=== PATIENT | female | born 1960 | race Caucasian/White ===

== ENCOUNTER 2017-05-16 11:46 | Inpatient (IN) | payer MEDICAID ==
[~2017-05-16] VITALS: Ht 175.3 cm; Wt 134.7 kg
[2017-05-16 12:23] LABS: Basophils # (auto) 0.1 uL; Basophils % (auto) 0.5 % (0.0-2.0); Eosinophils # (auto) 0.1 uL; Eosinophils % (auto) 0.4 % (0.0-7.0); Hematocrit 47.8 % (36.0-46.0); Hemoglobin 15.8 g/dL (12.2-16.2); Lymphocytes # (auto) 1.7 uL; Lymphocytes % (auto) 12.5 % (10.0-50.0); Mean Corpuscular Hemoglobin 29.7 pg (28.0-32.0); Monocytes % (auto) 7.4 % (0.0-12.0); Neutrophils # (auto) 10.5 uL; Neutrophils % (auto) 79.2 % (37.0-80.0); Nucleated Red Blood Cells % 0.1 %; Platelet Count (auto) 293 10^3/uL (140-450); Red Blood Cells 5.32 10^6/uL (4.0-5.20); Red Cell Distribution Width 13.4 % (11.8-14.3); White Blood Cell 13.2 10^3/uL (4.4-10.8)
[2017-05-16] MEDS ORDERED: SODIUM CHLORIDE 0.9% 1,000 ML IVB ONE (12:37)
[2017-05-16 12:43] LABS: Alanine Aminotransferase 36 U/L (13-56); Albumin 4.2 g/dL (3.4-5.0); Anion Gap 10 (5-15); Aspartate Aminotransferase 31 U/L (15-37); BUN/Creatinine Ratio 13.2; Blood Urea Nitrogen 14 mg/dL (7-18); Calcium 9.4 mg/dL (8.5-10.1); Carbon Dioxide 24 mmol/L (21-32); Chloride 101 mmol/L (98-107); GFR African American 69 mL/min; GFR Non-African American 57 mL/min; Glucose 118 mg/dL (74-106); Potassium 4.4 mmol/L (3.5-5.1); Sodium 135 mmol/L (136-145)
[2017-05-16] MEDS ORDERED: ONDANSETRON HCL 4 MG/2 ML VIAL IV ONE (12:45)
[2017-05-16] MEDS ORDERED: MORPHINE SULFATE 4 MG/ML SYR/VIAL IV ONE ×2 (12:45→16:30)
[2017-05-16 12:47] LABS: Alkaline Phosphatase 70 U/L (45-117); Bilirubin, Total 0.4 mg/dL (0.2-1.0); Total Protein 8.3 g/dL (6.4-8.2)
[2017-05-16 12:58] LABS: Magnesium 2.4 mg/dL (1.6-2.6)
[2017-05-16 13:11] LABS: INR 0.98 (0.9-1.15); Partial Thromboplastin Time 26.8 sec (22.64-33.71); Prothrombin Time 10.7 sec (9.37-12.3)
[2017-05-16] MEDS ORDERED: cefTRIAXone 1GM/10ml IVPUSH 10 ML IV ONE (18:00)
[2017-05-16] MEDS ORDERED: DOCUSATE SOD 100 MG CAP PO PRN (18:15)
[2017-05-16] MEDS ORDERED: TEMAZEPAM 15 MG CAP PO PRN (18:15)
[2017-05-16] MEDS ORDERED: cloNIDine HCL 0.1 MG TAB PO PRN (18:15)
[2017-05-16] MEDS ORDERED: ACETAMINOPHEN 325 MG TAB PO PRN (18:15)
[2017-05-16] MEDS: SODIUM CHLORIDE 0.9% 1,000 ML IV SCH (18:37)
[2017-05-16 19:55] LABS: Urine Bacteria FEW /hpf (None Seen); Urine Blood Negative /uL (Negative); Urine Mucus FEW (None Seen); Urine Specific Gravity 1.013 (1.001-1.035); Urine WBC 1 /hpf (0 - 5)
[2017-05-16 20:00] VITALS: BP 123/83
[2017-05-16] MEDS ORDERED: INFLUENZA QUAD 2017-2018 0.5 ML SYRG IM ONE (21:30)
[2017-05-16] MEDS: metroNIDAZOLE 500MG/100ML 100 ML IV SCH (21:41)
[2017-05-16] MEDS: ONDANSETRON HCL 4 MG/2 ML VIAL IV PRN (21:42)
[2017-05-16] MEDS: FAMOTIDINE 20 MG TAB PO SCH (21:42)
[2017-05-16] MEDS: ASCORBIC ACID 500 MG TAB PO SCH (21:42)
[2017-05-16] MEDS: MORPHINE SULFATE 4 MG/ML SYR/VIAL IV PRN (21:43)
[2017-05-17] MEDS: SODIUM CHLORIDE 0.9% 1,000 ML IV SCH (02:23)
[2017-05-17] MEDS: MORPHINE SULFATE 4 MG/ML SYR/VIAL IV PRN ×5 (04:06→22:07)
[2017-05-17] MEDS: ONDANSETRON HCL 4 MG/2 ML VIAL IV PRN ×3 (04:06→17:53)
[2017-05-17 05:00] VITALS: BP 113/71
[2017-05-17] MEDS: metroNIDAZOLE 500MG/100ML 100 ML IV SCH ×3 (05:32→22:07)
[2017-05-17 07:00] LABS: Basophils # (auto) 0 uL; Basophils % (auto) 0.2 % (0.0-2.0); Eosinophils # (auto) 0.1 uL; Eosinophils % (auto) 0.6 % (0.0-7.0); Hematocrit 41.5 % (36.0-46.0); Hemoglobin 13.7 g/dL (12.2-16.2); Lymphocytes # (auto) 1.3 uL; Lymphocytes % (auto) 8.4 % (10.0-50.0); Mean Corpuscular Hgb Conc. 33.2 g/dL (32.0-36.0); Mean Corpuscular Volume 90.4 fL (80.0-100.0); Monocytes # (auto) 1.6 uL; Monocytes % (auto) 10.4 % (0.0-12.0); Neutrophils # (auto) 12.1 uL; Neutrophils % (auto) 80.4 % (37.0-80.0); Platelet Count (auto) 240 10^3/uL (140-450); Red Blood Cells 4.58 10^6/uL (4.0-5.20); Red Cell Distribution Width 13.3 % (11.8-14.3); White Blood Cell 15.1 10^3/uL (4.4-10.8)
[2017-05-17 07:08] LABS: Calcium 8.5 mg/dL (8.5-10.1)
[2017-05-17 07:11] LABS: Albumin 3.3 g/dL (3.4-5.0); BUN/Creatinine Ratio 9.8
[2017-05-17 07:25] LABS: Bilirubin, Total 0.5 mg/dL (0.2-1.0); Total Protein 6.9 g/dL (6.4-8.2)
[2017-05-17] MEDS: ASCORBIC ACID 500 MG TAB PO SCH ×2 (08:43→21:06)
[2017-05-17] MEDS: MULTIPLE VITAMIN TAB PO SCH (08:43)
[2017-05-17] MEDS: FAMOTIDINE 20 MG TAB PO SCH ×2 (08:43→21:05)
[2017-05-17] MEDS: ZINC SULFATE 220 MG CAP PO SCH (08:43)
[2017-05-17] MEDS: cefTRIAXone 1GM/10ml IVPUSH 10 ML IV SCH (08:44)
[2017-05-17 09:00] VITALS: BP 122/66
[2017-05-17 13:00] VITALS: BP 120/72
[2017-05-17 15:34] LABS: INR 1.05 (0.9-1.15); Partial Thromboplastin Time 29.5 sec (22.64-33.71); Prothrombin Time 11.4 sec (9.37-12.3)
[2017-05-17 17:00] VITALS: BP 116/68
[2017-05-17] MEDS: HYDROcodone-ACET 5/325MG TAB PO PRN (21:05)
[2017-05-17 22:00] VITALS: BP 104/60
[2017-05-18] MEDS: MORPHINE SULFATE 4 MG/ML SYR/VIAL IV PRN ×4 (02:38→16:29)
[2017-05-18 05:00] VITALS: BP 102/50
[2017-05-18] MEDS: metroNIDAZOLE 500MG/100ML 100 ML IV SCH ×3 (05:11→21:45)
[2017-05-18] MEDS ORDERED: ceFAZolin 1GM/50ML 50 ML IV ONE (07:15)
[2017-05-18] MEDS ORDERED: POVIDONE IODINE 10 % TOPICAL OINT 30GM TOP ONE (07:57)
[2017-05-18] MEDS ORDERED: SUCCINYLCHOLINE CHLORIDE 20 MG/ML 10ML VIAL IV ONE (08:11)
[2017-05-18] MEDS ORDERED: LIDOCAINE 1% HCL (LOCAL ANESTH.) INJ 20ML MDV ONE (08:11)
[2017-05-18] MEDS ORDERED: MIDAZOLAM HCL 1MG/1ML-2 ML VIAL ONE (08:13)
[2017-05-18] MEDS ORDERED: ROCURONIUM 10MG/ML 10ML VIAL IV ONE (08:17)
[2017-05-18] MEDS ORDERED: PROPOFOL 10 MG/ML 20 ML IV ONE (08:17)
[2017-05-18] MEDS ORDERED: hydrALAZINE HCL 20 MG/ML VL IV PRN (08:30)
[2017-05-18] MEDS ORDERED: KETOROLAC TROMETH 30 MG/ML 1ML VIAL IV PRN (08:30)
[2017-05-18] MEDS ORDERED: NALOXONE HCL 0.4 MG/ML VIAL IV PRN (08:30)
[2017-05-18] MEDS ORDERED: MORPHINE SULFATE 4 MG/ML SYR/VIAL IV PRN (08:30)
[2017-05-18] MEDS ORDERED: ONDANSETRON HCL 4 MG/2 ML VIAL IV ONE (08:30)
[2017-05-18] MEDS ORDERED: fentaNYL CITRATE 100 MCG/2 ML VL ONE (08:35)
[2017-05-18] MEDS ORDERED: ESMOLOL HCL 10 ML IV ONE (08:45)
[2017-05-18] MEDS ORDERED: NEOSTIGMINE 1 MG/ML INJ (10mg/10ML VIAL) ONE (09:01)
[2017-05-18] MEDS ORDERED: GLYCOPYRROLATE 0.2 MG/ML 1ML VIAL ONE (09:01)
[2017-05-18 10:47] VITALS: BP 134/82
[2017-05-18] MEDS: cefTRIAXone 1GM/10ml IVPUSH 10 ML IV SCH (12:47)
[2017-05-18] MEDS: ASCORBIC ACID 500 MG TAB PO SCH ×2 (12:48→21:45)
[2017-05-18] MEDS: MULTIPLE VITAMIN TAB PO SCH (12:48)
[2017-05-18] MEDS: ZINC SULFATE 220 MG CAP PO SCH (12:48)
[2017-05-18] MEDS: FAMOTIDINE 20 MG TAB PO SCH ×2 (12:48→21:45)
[2017-05-18 13:00] VITALS: BP 114/48
[2017-05-18 14:36] LABS: Albumin 2.6 g/dL (3.4-5.0); BUN/Creatinine Ratio 7.4; Bilirubin, Total 0.5 mg/dL (0.2-1.0); Calcium 7.8 mg/dL (8.5-10.1); Potassium 4.5 mmol/L (3.5-5.1); Total Protein 7.1 g/dL (6.4-8.2)
[2017-05-18 16:16] VITALS: BP 113/76
[2017-05-18 17:00] VITALS: BP_SYST 113; BP_SYST 153; BP_SYST 188; BP_DIAS 68; BP_DIAS 71; BP_DIAS 84
[2017-05-18 18:04] LABS: Basophils # (auto) 0 uL; Basophils % (auto) 0.2 % (0.0-2.0); Eosinophils # (auto) 0.1 uL; Eosinophils % (auto) 0.4 % (0.0-7.0); Hematocrit 39.8 % (36.0-46.0); Hemoglobin 13.1 g/dL (12.2-16.2); Lymphocytes # (auto) 0.9 uL; Lymphocytes % (auto) 5.9 % (10.0-50.0); Mean Corpuscular Hemoglobin 30.3 pg (28.0-32.0); Mean Corpuscular Hgb Conc. 33.1 g/dL (32.0-36.0); Mean Corpuscular Volume 91.8 fL (80.0-100.0); Monocytes # (auto) 1.6 uL; Neutrophils # (auto) 12.1 uL; Neutrophils % (auto) 82.5 % (37.0-80.0); Platelet Count (auto) 209 10^3/uL (140-450); Red Blood Cells 4.33 10^6/uL (4.0-5.20); Red Cell Distribution Width 13.6 % (11.8-14.3); White Blood Cell 14.6 10^3/uL (4.4-10.8)
[2017-05-18] MEDS: HYDROcodone-ACET 5/325MG TAB PO PRN (19:45)
[2017-05-18 21:54] VITALS: BP 112/63
[2017-05-19] MEDS: MORPHINE SULFATE 4 MG/ML SYR/VIAL IV PRN ×3 (01:25→10:56)
[2017-05-19 05:08] VITALS: BP 103/65
[2017-05-19] MEDS: metroNIDAZOLE 500MG/100ML 100 ML IV SCH ×2 (05:31→14:31)
[2017-05-19 07:26] LABS: Basophils # (auto) 0 uL; Basophils % (auto) 0.2 % (0.0-2.0); Eosinophils # (auto) 0.2 uL; Eosinophils % (auto) 1.7 % (0.0-7.0); Hematocrit 37.3 % (36.0-46.0); Hemoglobin 12.5 g/dL (12.2-16.2); Lymphocytes # (auto) 1.4 uL; Lymphocytes % (auto) 12.9 % (10.0-50.0); Mean Corpuscular Hemoglobin 30.4 pg (28.0-32.0); Mean Corpuscular Hgb Conc. 33.5 g/dL (32.0-36.0); Mean Corpuscular Volume 90.7 fL (80.0-100.0); Monocytes # (auto) 1.1 uL; Monocytes % (auto) 9.8 % (0.0-12.0); Neutrophils # (auto) 8.1 uL; Neutrophils % (auto) 75.4 % (37.0-80.0); Platelet Count (auto) 191 10^3/uL (140-450); Red Blood Cells 4.11 10^6/uL (4.0-5.20); Red Cell Distribution Width 13.6 % (11.8-14.3); White Blood Cell 10.8 10^3/uL (4.4-10.8)
[2017-05-19 07:43] LABS: BUN/Creatinine Ratio 9.3
[2017-05-19 08:00] VITALS: BP 103/64
[2017-05-19 09:00] VITALS: BP 103/64
[2017-05-19] MEDS: ZINC SULFATE 220 MG CAP PO SCH (10:55)
[2017-05-19] MEDS: ASCORBIC ACID 500 MG TAB PO SCH (10:55)
[2017-05-19] MEDS: MULTIPLE VITAMIN TAB PO SCH (10:55)
[2017-05-19] MEDS: FAMOTIDINE 20 MG TAB PO SCH (10:55)
[2017-05-19] MEDS: cefTRIAXone 1GM/10ml IVPUSH 10 ML IV SCH (10:56)
[2017-05-19 12:52] VITALS: BP 107/72
[2017-05-19] MEDS: HYDROcodone-ACET 5/325MG TAB PO PRN (13:16)
== END 2017-05-19 15:40 | disposition home or self-care (01) | DRG 263 ==
LOC: ER 11:46 → OVERFLOW 11:47 → WEST WING 21:51
PROVIDERS: ADMIT Internal Medicine; ATTEND Internal Medicine
PROC: 0FT44ZZ Resection of Gallbladder, Percutaneous Endoscopic Approach (ICD-10-PCS; principal; 2017-05-18 08:10)
DX: K80.00 Calculus of gallbladder with acute cholecystitis without obstruction (principal); N17.0 Acute kidney failure with tubular necrosis; R65.10 Systemic inflammatory response syndrome (SIRS) of non-infectious origin without acute organ dysfunction; Z68.41 Body mass index [BMI] 40.0-44.9, adult; E87.1 Hypo-osmolality and hyponatremia; E66.01 Morbid (severe) obesity due to excess calories; K76.0 Fatty (change of) liver, not elsewhere classified; N18.3 Chronic kidney disease, stage 3 (moderate); D75.1 Secondary polycythemia; J98.11 Atelectasis; K57.30 Diverticulosis of large intestine without perforation or abscess without bleeding; Z82.49 Family history of ischemic heart disease and other diseases of the circulatory system; Z87.891 Personal history of nicotine dependence; Z88.5 Allergy status to narcotic agent; Z23 Encounter for immunization
CPT/HCPCS: 36415; 71045; 74176; 76705; 78226; 80048; 80053; 81001; 82150; 82247; 83690; 83735; 84484; 85025; 85610; 85730; 86850; 86900; 86901; 87040; 87086; 93005; 94761; 96361; 96374; 96375; 96376; J0330; J0690; J1885; J2001; J2250; J2405; J2704; J3490